=== PATIENT | female | born 1945 | race Caucasian/White ===

== ENCOUNTER 2017-02-06 10:49 | Outpatient (CLI) | payer MEDICARE ==
--- NOTE | 2017-02-06 12:27 | MMO ---
BILATERAL DIGITAL SCREENING MAMMOGRAMS: Date: 02/06/17 This patient's mammogram was interpreted with the assistance of computer-aided detection. Comparison made with exams of 12/16/14 and 12/04/13. FINDINGS: There are scattered fibroglandular densities. Biopsy in the upper aspect of the right breast on MLO projection is again seen. No suspicious masses or calcifications are identified. IMPRESSION: BIRADS 2: Benign Finding(s) Return to annual mammographic screening. POS: TRIPP
== END 2017-02-06 10:50 | disposition home or self-care (01) ==
LOC: SCSMAMMO 10:49
PROVIDERS: ATTEND Family Medicine
DX: Z12.31 Encounter for screening mammogram for malignant neoplasm of breast (principal)
CPT/HCPCS: 77067; G0202

== ENCOUNTER 2017-04-16 12:14 | Emergency (ER) | payer MEDICARE | END 2017-04-16 13:06 | disposition home or self-care (01) | LOC: SCSER 12:14 | DX: S70.362A Insect bite (nonvenomous), left thigh, initial encounter (principal); L03.116 Cellulitis of left lower limb; E03.9 Hypothyroidism, unspecified; E78.5 Hyperlipidemia, unspecified; W57.XXXA Bitten or stung by nonvenomous insect and other nonvenomous arthropods, initial encounter | CPT/HCPCS: 99282 ==

== ENCOUNTER 2018-02-14 13:39 | Outpatient (CLI) | payer MEDICARE | END 2018-02-14 13:40 | disposition home or self-care (01) | LOC: BICMAMMO 13:39 | PROVIDERS: ATTEND Family Medicine | DX: Z12.31 Encounter for screening mammogram for malignant neoplasm of breast (principal); Z98.890 Other specified postprocedural states | CPT/HCPCS: 77063; 77067 ==

== ENCOUNTER 2018-02-15 14:47 | Outpatient (CLI) | payer MEDICARE ==
--- NOTE | 2018-02-15 17:13 | BD ---
Exam: DEXA Bone Density 02/15/18 HISTORY: Postmenopausal screening for osteoporosis, asymptomatic menopausal state. FINDINGS: Lumbar Spine: BMD (g/cm2) T-Score: Z-Score: L1 1.048 0.5 2.5 L2 1.246 2.0 4.2 L3 1.172 0.8 3.1 L4 1.151 0.8 3.2 L1-L4 1.155 1.0 3.2 Femoral Neck: 0.669 -1.6 0.3 Total Femur: 0.952 0.1 1.7 There has been interval improvement of 0.2% in the BMD of the lumbar spine and improvement of 10.3% i n the BMD of the proximal femur since 05/20/15. The ten year fracture risk for major osteoporotic fracture is 11% and for hip fracture is 1.8%. Impression: Osteopenia. POS: TRIPP
== END 2018-02-15 14:48 | disposition home or self-care (01) ==
LOC: BICMAMMO 14:47
PROVIDERS: ATTEND Family Medicine
DX: Z13.820 Encounter for screening for osteoporosis (principal); M85.80 Other specified disorders of bone density and structure, unspecified site; Z78.0 Asymptomatic menopausal state
CPT/HCPCS: 77080

== ENCOUNTER 2018-07-31 11:48 | Outpatient (CLI) | payer MEDICARE ==
--- NOTE | 2018-07-31 12:12 | RAD ---
Right ankle 3 views HISTORY: Right ankle pain. No injury. FINDINGS: There is external rotation of the talar dome within the ankle mortise. Widening of the supe rior/lateral joint space to 0.6 cm. Talar dome is maintained. Moderate osteophytosis. Mild subchondral sclerosis. No acute fracture or dislocation. Small plantar enthesophyte at the inferior a spect of the calcaneus. IMPRESSION: Degenerative changes of the right ankle. External rotation of the talus suggests chronic ligamentous instability. No acute osseous abnormalities are demonstrated. Small plantar heel spur.
== END 2018-07-31 11:49 | disposition home or self-care (01) ==
LOC: SCSRAD 11:48
PROVIDERS: ATTEND Family Medicine
DX: M25.571 Pain in right ankle and joints of right foot (principal); G89.29 Other chronic pain; M19.071 Primary osteoarthritis, right ankle and foot; M77.31 Calcaneal spur, right foot

== ENCOUNTER 2020-10-14 10:52 | Outpatient (CLI) | payer MEDICARE | END 2020-10-14 10:53 | disposition home or self-care (01) | LOC: BICMAMMO 10:52 | PROVIDERS: ATTEND Family Medicine | DX: Z12.31 Encounter for screening mammogram for malignant neoplasm of breast (principal) | CPT/HCPCS: 77063; 77067 ==

== ENCOUNTER 2021-10-18 14:06 | Outpatient (CLI) | payer MEDICARE | END 2021-10-18 14:07 | disposition home or self-care (01) | LOC: BICMAMMO 14:06 | PROVIDERS: ATTEND Family Medicine | DX: Z12.31 Encounter for screening mammogram for malignant neoplasm of breast (principal); Z91.89 Other specified personal risk factors, not elsewhere classified | CPT/HCPCS: 77063; 77067 ==

== ENCOUNTER 2022-12-20 14:38 | Outpatient (CLI) | payer MEDICARE | END 2022-12-20 14:39 | disposition home or self-care (01) | LOC: BICMAMMO 14:38 | PROVIDERS: ATTEND Family Medicine | DX: Z12.31 Encounter for screening mammogram for malignant neoplasm of breast (principal); Z91.89 Other specified personal risk factors, not elsewhere classified | CPT/HCPCS: 77063; 77067 ==

== ENCOUNTER 2024-01-07 15:20 | Outpatient (CLI) | payer MEDICARE | END 2024-01-07 15:21 | disposition home or self-care (01) | LOC: BICMAMMO 15:20 | PROVIDERS: ATTEND Family Medicine | DX: Z12.31 Encounter for screening mammogram for malignant neoplasm of breast (principal); Z91.89 Other specified personal risk factors, not elsewhere classified | CPT/HCPCS: 77067 ==